=== PATIENT | female | born 1940 | race Caucasian/White ===

== ENCOUNTER 2017-01-17 08:22 | Outpatient (CLI) | payer MEDICARE, OTHER | END 2017-01-17 08:23 | disposition home or self-care (01) | DX: I77.1 Stricture of artery (principal); I10 Essential (primary) hypertension; E78.5 Hyperlipidemia, unspecified; Z72.0 Tobacco use ==

== ENCOUNTER 2017-01-28 08:18 | Outpatient (CLI) | payer MEDICARE, OTHER ==
[2017-01-28] MEDS ORDERED: IOPAMIDOL-300 100 ML VIAL IVP ONE (09:23)
== END 2017-01-28 08:19 | disposition home or self-care (01) ==
DX: I70.8 Atherosclerosis of other arteries (principal)
CPT/HCPCS: 74174; Q9967

== ENCOUNTER 2017-01-28 08:20 | Outpatient (CLI) | payer MEDICARE, OTHER | END 2017-01-28 08:21 | disposition home or self-care (01) | DX: Z12.31 Encounter for screening mammogram for malignant neoplasm of breast (principal) ==

== ENCOUNTER 2020-10-09 10:29 | Outpatient (CLI) | payer MEDICARE, OTHER ==
[2020-10-09 14:36] LABS: BASOPHILS # (AUTO) 0.1 10^3/uL (0.0-0.1); BASOPHILS % (AUTO) 0.6 %; EOSINOPHILS # (AUTO) 0.7 10^3/uL (0.0-0.7); EOSINOPHILS % (AUTO) 7.4 %; HGB - HEMOGLOBIN 14.3 g/dL (12.0-16.0); LYMPHOCYTES # (AUTO) 2.3 10^3/uL (1.5-3.5); LYMPHOCYTES % (AUTO) 24.3 %; MEAN CORPUSCULAR HEMOGLOBIN 30.5 pg (27.0-31.0); MEAN CORPUSCULAR HGB CONC 32.4 g/dL (32.0-36.0); MEAN CORPUSCULAR VOLUME 94.2 fL (81.0-99.0); MEAN PLATELET VOLUME 10.8 fL (7.9-10.8); MONOCYTES # (AUTO) 0.5 10^3/uL (0.0-1.0); MONOCYTES % (AUTO) 5.6 %; NEUTROPHILS # (AUTO) 5.8 10^3/uL (1.5-6.6); NEUTROPHILS % (AUTO) 61.7 %; PLT - PLATELET COUNT 315 10^3/uL (130-450); RED BLOOD COUNT 4.69 10^6/uL (4.20-5.40); RED CELL DISTRIBUTION WIDTH 13.5 % (12.0-15.0); WHITE BLOOD COUNT 9.3 x10^3/uL (4.8-10.8)
[2020-10-09 15:38] LABS: ALBUMIN 4.2 g/dL (3.2-5.5); ALBUMIN/GLOBULIN RATIO 1.3 (1.0-2.2); ALKALINE PHOSPHATASE 69 IU/L (42-121); ALT ALANINE AMINOTRANSFERASE 13 IU/L (10-60); AST ASPARTATE AMINOTRANSFERASE 20 IU/L (10-42); BILIRUBIN,TOTAL 0.4 mg/dL (0.2-1.0); BUN - BLOOD UREA NITROGEN 19 mg/dL (6-20); CALCIUM 9.3 mg/dL (8.5-10.3); CARBON DIOXIDE - CO2 27 mmol/L (21-32); CHLORIDE 103 mmol/L (101-111); CHOL/HDL RATIO 3.8 (<4.4); CHOLESTEROL 229 mg/dL; CREATININE 0.9 mg/dL (0.4-1.0); GLUCOSE 98 mg/dL (70-100); HDL CHOLESTEROL 60 mg/dL; LDL CHOLESTEROL,CALCULATED 149 mg/dL; LDL/HDL RATIO 2.5 (<4.4); SODIUM 140 mmol/L (135-145); TOTAL PROTEIN 7.4 g/dL (6.7-8.2); VLDL CHOLESTEROL 20 mg/dL
== END 2020-10-09 10:30 | disposition home or self-care (01) ==
LOC: LAB.S 10:29
PROVIDERS: ATTEND Internal Medicine
DX: I10 Essential (primary) hypertension (principal); Z79.899 Other long term (current) drug therapy; E78.5 Hyperlipidemia, unspecified
CPT/HCPCS: 36415; 80053; 80061; 83721; 85025

== ENCOUNTER 2020-10-29 15:34 | Outpatient (CLI) | payer MEDICARE, OTHER ==
--- NOTE | 2020-10-29 21:22 | Ultrasound Report ---
PROCEDURE: Carotid Doppler Complete INDICATIONS: DIZZINESS, NICOTINE DEPENDENCE TECHNIQUE: Color and pulse Doppler interrogation was performed of both carotid systems, with image documentation and velocity measurements. COMPARISON: None. FINDINGS: Right side: Common carotid artery peak systolic velocity: 59.0 cm/sec. Internal carotid artery peak systolic velocity: 83.9 cm/sec. Internal carotid artery end diastolic velocity: 20 3. cm/sec. External carotid artery peak systolic velocity: 101.4 cm/sec. ICA/CCA peak systolic ratio: 1.7. Holly scale imaging description: Echogenic plaques at the bifurcation. Percent internal carotid artery stenosis: Less than 50%. Vertebral artery: Flow direction is antegrade. Left side: Common carotid artery peak systolic velocity: 76.1 cm/sec. Internal carotid artery peak systolic velocity: 86 points cm/sec. Internal carotid artery end diastolic velocity: 15.6 cm/sec. External carotid artery peak systolic velocity: 80 4. cm/sec. ICA/CCA peak systolic ratio: 1.1. Holly scale imaging description: Echogenic plaques at the bifurcation Percent internal carotid artery stenosis: Less than 50% . Vertebral artery: Flow direction is antegrade. IMPRESSION: Less than 50% internal carotid artery stenosis bilaterally. The estimate of stenosis included in the report of the imaging study was calculated using the NASCET method Reviewed by: Bernardino Grubbs MD on 10/29/2020 9:20 PM PST Approved by: Bernardino Grubbs MD on 10/29/2020 9:20 PM PST Station ID: [id number]
== END 2020-10-29 15:35 | disposition home or self-care (01) ==
LOC: DI 15:34
PROVIDERS: ATTEND Internal Medicine
DX: R42 Dizziness and giddiness (principal); F17.200 Nicotine dependence, unspecified, uncomplicated
CPT/HCPCS: 93880

== ENCOUNTER 2021-05-15 09:11 | Outpatient (CLI) | payer MEDICARE, OTHER ==
[2021-05-15 14:29] LABS: BASOPHILS # (AUTO) 0.1 10^3/uL (0.0-0.1); BASOPHILS % (AUTO) 0.7 %; EOSINOPHILS # (AUTO) 0.8 10^3/uL (0.0-0.7); HCT - HEMATOCRIT 44.8 % (37.0-47.0); HGB - HEMOGLOBIN 14.6 g/dL (12.0-16.0); LYMPHOCYTES # (AUTO) 3.1 10^3/uL (1.5-3.5); LYMPHOCYTES % (AUTO) 30.3 %; MEAN CORPUSCULAR HEMOGLOBIN 30.7 pg (27.0-31.0); MEAN CORPUSCULAR HGB CONC 32.6 g/dL (32.0-36.0); MEAN CORPUSCULAR VOLUME 94.1 fL (81.0-99.0); MEAN PLATELET VOLUME 10.5 fL (7.9-10.8); MONOCYTES # (AUTO) 0.6 10^3/uL (0.0-1.0); MONOCYTES % (AUTO) 5.9 %; NEUTROPHILS # (AUTO) 5.6 10^3/uL (1.5-6.6); NEUTROPHILS % (AUTO) 54.6 %; PLT - PLATELET COUNT 308 10^3/uL (130-450); RED BLOOD COUNT 4.76 10^6/uL (4.20-5.40); WHITE BLOOD COUNT 10.2 x10^3/uL (4.8-10.8)
[2021-05-15 15:16] LABS: ALBUMIN 4.2 g/dL (3.2-5.5); ALBUMIN/GLOBULIN RATIO 1.4 (1.0-2.2); ALKALINE PHOSPHATASE 70 IU/L (42-121); ALT ALANINE AMINOTRANSFERASE 14 IU/L (10-60); AST ASPARTATE AMINOTRANSFERASE 20 IU/L (10-42); BILIRUBIN,TOTAL 0.4 mg/dL (0.2-1.0); BUN - BLOOD UREA NITROGEN 21 mg/dL (6-20); CARBON DIOXIDE - CO2 30 mmol/L (21-32); CHLORIDE 102 mmol/L (101-111); CHOLESTEROL 179 mg/dL; GFR - MDRD 53 (>89); GLUCOSE 99 mg/dL (70-100); HDL CHOLESTEROL 59 mg/dL; LDL CHOLESTEROL,CALCULATED 104 mg/dL; LDL/HDL RATIO 1.8 (<4.4); POTASSIUM 3.9 mmol/L (3.5-5.0); SODIUM 140 mmol/L (135-145); TOTAL PROTEIN 7.1 g/dL (6.7-8.2); TRIGLYCERIDES 78 mg/dL; VLDL CHOLESTEROL 16 mg/dL
== END 2021-05-15 09:12 | disposition home or self-care (01) ==
LOC: LAB.S 09:11
PROVIDERS: ATTEND Internal Medicine
DX: I10 Essential (primary) hypertension (principal); E78.5 Hyperlipidemia, unspecified
CPT/HCPCS: 36415; 80053; 80061; 83721; 85025

== ENCOUNTER 2022-01-24 08:41 | Outpatient (CLI) | payer MEDICARE, OTHER ==
[2022-01-24 15:11] LABS: BASOPHILS # (AUTO) 0.1 10^3/uL (0.0-0.1); BASOPHILS % (AUTO) 0.9 %; EOSINOPHILS # (AUTO) 0.9 10^3/uL (0.0-0.7); EOSINOPHILS % (AUTO) 9.5 %; HCT - HEMATOCRIT 45.8 % (37.0-47.0); HGB - HEMOGLOBIN 15.1 g/dL (12.0-16.0); LYMPHOCYTES # (AUTO) 2.8 10^3/uL (1.5-3.5); MEAN CORPUSCULAR HEMOGLOBIN 30.8 pg (27.0-31.0); MEAN CORPUSCULAR VOLUME 93.3 fL (81.0-99.0); MEAN PLATELET VOLUME 10.4 fL (7.9-10.8); MONOCYTES # (AUTO) 0.5 10^3/uL (0.0-1.0); MONOCYTES % (AUTO) 5.8 %; NEUTROPHILS # (AUTO) 4.7 10^3/uL (1.5-6.6); NEUTROPHILS % (AUTO) 52.5 %; PLT - PLATELET COUNT 304 10^3/uL (130-450); RED BLOOD COUNT 4.91 10^6/uL (4.20-5.40); RED CELL DISTRIBUTION WIDTH 13.7 % (12.0-15.0)
[2022-01-24 15:29] LABS: ALBUMIN 4.1 g/dL (3.2-5.5); ALBUMIN/GLOBULIN RATIO 1.4 (1.0-2.2); BILIRUBIN,TOTAL 0.7 mg/dL (0.2-1.0); CALCIUM 8.9 mg/dL (8.5-10.3)
== END 2022-01-24 08:42 | disposition home or self-care (01) ==
LOC: LAB.S 08:41
PROVIDERS: ATTEND Internal Medicine
DX: I10 Essential (primary) hypertension (principal)
CPT/HCPCS: 36415; 80053; 85025

== ENCOUNTER 2022-04-09 11:46 | Outpatient (CLI) | payer MEDICARE, OTHER ==
--- NOTE | 2022-04-09 18:15 | CT Report ---
PROCEDURE: Low Dose Lung Cancer Screen INDICATIONS: HIST OF SMOKING TECHNIQUE: Noncontrast low-dose images were acquired from the pulmonary apices to the posterior costophrenic ang les. Multiplanar MIP reformats were then acquired. For radiation dose reduction, the following was used: automated exposure control, adjustment of mA and/or kV according to patient size. COMPARISON: Chest radiograph dated 05/30/2014 FINDINGS: Image quality: Diagnostic. Lungs and pleura: There is a subsolid 5 mm right apical nodule (image 44/series 4). There are a few subcentimeter noncalcified pulmonary nodules noted in the subpleural region of the bilateral hemithor aces. These measure up to 4 mm in size. For example, lateral right upper lobe nodule seen on image 53 /series 4 as well as 3 mm lateral left upper lobe nodule seen on image 85/series 4. Additional exampl e noted in the subpleural region of the left lower lobe (image 259/series 4, 4 mm in size). There is also a ill-defined 1.4 cm groundglass nodule noted in the posterior, inferior aspect of the left uppe r lobe (image 110/series 4). No acute airspace disease. No septal thickening or nodularity. No suspic ious pulmonary mass. No pleural effusion or pneumothorax. Mediastinum: Heart size is normal. Atherosclerotic calcifications of the thoracic aorta and coronar y arteries. No pericardial effusion. No mediastinal adenopathy by size criteria. Thoracic aorta and central pulmonary arteries are normal in size. Esophagus is normal in caliber. Small hiatal hernia. Bones and chest wall: No suspicious bony lesions. No acute vertebral body compression fractures. N o axillary or supraclavicular adenopathy by size criteria. The thyroid is normal in size and there a re no incidental findings. Abdomen: Partially imaged gallbladder demonstrates suspected dense gallstones. Remaining visualized upper abdomen solid organs and bowel loops appear normal in the absence of contrast. IMPRESSION: 1. A 1.4 cm ill-defined groundglass nodule in the left upper lobe. Recommend follow-up low-dose chest CT in 12 months. 2. Multiple scattered bilateral subpleural pulmonary nodules measuring up to 4 mm in size. Recommend follow-up low-dose chest CT in 12 months to document stability. 3. A subsolid 5 mm right apical nodule. Recommend follow-up low-dose chest CT in 12 months to mer cunningham stability. 4. No acute cardiopulmonary abnormalities. 5. Moderate atherosclerotic vascular disease. 6. Suspected cholelithiasis without CT evidence for acute cholecystitis. 7. Small hiatal hernia. Lung RADS 2 (benign): Recommend follow-up low-dose chest CT in 12 months. CLINICAL RECOMMENDATION STATEMENTS: In patients <35 years with an ITN detected on CT, MRI, or extrathyroidal ultrasound, the Committee re commends further evaluation with dedicated thyroid ultrasound if the nodule is "e1 cm and has no susp icious imaging features, and if the patient has normal life expectancy. In patients "e35 years with an ITN detected on CT, MRI, or extrathyroidal ultrasound, the Committee r ecommends further evaluation with dedicated thyroid ultrasound if the nodule is "e1.5 cm and has no s uspicious imaging features, and if the patient has normal life expectancy. (ACR, 2014) Reviewed by: Mau Whitley MD on 04/09/2022 6:14 PM PDT Approved by: Mau Whitley MD on 04/09/2022 6:14 PM PDT Station ID: [id number]
== END 2022-04-09 11:47 | disposition home or self-care (01) ==
LOC: DI 11:46
PROVIDERS: ATTEND Internal Medicine
DX: Z12.2 Encounter for screening for malignant neoplasm of respiratory organs (principal); R91.8 Other nonspecific abnormal finding of lung field; K44.9 Diaphragmatic hernia without obstruction or gangrene; I70.90 Unspecified atherosclerosis; Z87.891 Personal history of nicotine dependence

== ENCOUNTER 2023-04-03 10:39 | Outpatient (CLI) | payer MEDICARE, OTHER ==
--- NOTE | 2023-04-03 20:23 | CT Report ---
PROCEDURE: CHEST WO INDICATIONS: LUNG NODULES TECHNIQUE: Noncontrast 1mm axial images were acquired from the pulmonary apices to the posterior costophrenic an gles. Axial 5 mm soft tissue kernel reconstructions were performed as well as 8 mm axial MIP and cor onal and sagittal 5 mm reformations. For radiation dose reduction, the following was used: automate d exposure control, adjustment of mA and/or kV according to patient size. COMPARISON: 04/09/2022 FINDINGS: Image quality: Excellent. Lungs and pleura: Stable subsolid 5 mm right apical nodule (55/series 4). Stable 1.4 cm groundglass n odule in the posterior left upper lobe (114/series 4). Multiple small noncalcified subcentimeter subp leural nodule are also noted. These measure approximately 4 mm in size. For example right upper lobe nodule (66/34) and subpleural left upper lobe 3 mm nodule seen on image 95/series 4. No new or enlarg ing pulmonary nodules identified. No suspicious masses. No septal thickening or nodularity. No acute airspace disease. Bibasilar atelectasis. No pleural effusions. No pneumothorax. Mediastinum: Heart size is normal. No pericardial effusions. No mediastinal adenopathy by size criter ia. No large vessel abnormality. Atherosclerotic calcifications of the thoracic aorta and coronary ar teries. Small hiatal hernia. Chest wall and lower neck: Thyroid is unremarkable. No axillary or supraclavicular adenopathy by size . Bones: No aggressive osseous abnormality. No acute compression fracture. Upper Abdomen: Redemonstration of suspected dense gallstones in the partially imaged gallbladder. Oth er visualized upper abdominal structures appear unremarkable in the absence of contrast. IMPRESSION: Stable CT of the chest with redemonstration of 1.4 cm left upper lobe groundglass nodule as well as s ome solid 5 mm right apical nodule. Additionally, multiple stable subpleural pulmonary nodules in the bilateral hemithoraces measuring up to 4mm in size. No acute cardiopulmonary abnormalities. Atherosclerotic vascular disease. Suspected cholelithiasis without CT evidence for acute cholecystitis. Small hiatal hernia. Lung RADS 2 (benign): Recommend follow-up low-dose chest CT in 12 months. Reviewed by: Mau Portillo MD on 04/03/2023 8:21 PM PDT Approved by: Mau Portillo MD on 04/03/2023 8:21 PM PDT Station ID: [id number]
== END 2023-04-03 10:40 | disposition home or self-care (01) ==
LOC: DI 10:39
PROVIDERS: ATTEND Registered Nurse
DX: R91.8 Other nonspecific abnormal finding of lung field (principal); F17.210 Nicotine dependence, cigarettes, uncomplicated; I70.0 Atherosclerosis of aorta; I25.10 Atherosclerotic heart disease of native coronary artery without angina pectoris; K44.9 Diaphragmatic hernia without obstruction or gangrene

== ENCOUNTER 2024-03-31 09:16 | Outpatient (CLI) | payer MEDICARE, OTHER ==
[2024-03-31 14:41] LABS: BASOPHILS # (AUTO) 0.1 10^3/uL (0.0-0.1); BASOPHILS % (AUTO) 0.6 %; EOSINOPHILS # (AUTO) 0.7 10^3/uL (0.0-0.7); EOSINOPHILS % (AUTO) 7.3 %; HCT - HEMATOCRIT 44.3 % (37.0-47.0); HGB - HEMOGLOBIN 14.7 g/dL (12.0-16.0); LYMPHOCYTES # (AUTO) 2.5 10^3/uL (1.5-3.5); LYMPHOCYTES % (AUTO) 26.5 %; MEAN CORPUSCULAR HEMOGLOBIN 30.9 pg (27.0-31.0); MEAN CORPUSCULAR HGB CONC 33.2 g/dL (32.0-36.0); MEAN CORPUSCULAR VOLUME 93.1 fL (81.0-99.0); MEAN PLATELET VOLUME 10.6 fL (7.9-10.8); MONOCYTES # (AUTO) 0.7 10^3/uL (0.0-1.0); MONOCYTES % (AUTO) 7.1 %; NEUTROPHILS # (AUTO) 5.6 10^3/uL (1.5-6.6); NEUTROPHILS % (AUTO) 58.2 %; PLT - PLATELET COUNT 290 10^3/uL (130-450); RED BLOOD COUNT 4.76 10^6/uL (4.20-5.40); RED CELL DISTRIBUTION WIDTH 13.6 % (12.0-15.0); WHITE BLOOD COUNT 9.6 x10^3/uL (4.8-10.8)
[2024-03-31 14:55] LABS: ALBUMIN 4.2 g/dL (3.2-5.5); ALBUMIN/GLOBULIN RATIO 1.6 (1.0-2.2); ALKALINE PHOSPHATASE 67 IU/L (42-121); ALT ALANINE AMINOTRANSFERASE 10 IU/L (10-60); AST ASPARTATE AMINOTRANSFERASE 16 IU/L (10-42); BILIRUBIN,TOTAL 0.6 mg/dL (0.2-1.0); BUN - BLOOD UREA NITROGEN 18 mg/dL (6-20); CALCIUM 9.6 mg/dL (8.5-10.3); CARBON DIOXIDE - CO2 31 mmol/L (21-32); CHLORIDE 103 mmol/L (101-111); CHOL/HDL RATIO 2.8 (<4.4); CHOLESTEROL 174 mg/dL; GFR - MDRD 53 (>89); GLUCOSE 85 mg/dL (74-104); HDL CHOLESTEROL 63 mg/dL; LDL CHOLESTEROL,CALCULATED 93 mg/dL; LDL/HDL RATIO 1.5 (<4.4); POTASSIUM 3.9 mmol/L (3.5-4.5); SODIUM 139 mmol/L (135-145); TOTAL PROTEIN 6.9 g/dL (6.4-8.9); TRIGLYCERIDES 89 mg/dL (48-352); VLDL CHOLESTEROL 18 mg/dL
[2024-03-31 15:11] LABS: THYROID STIMULATING HORMONE 1.05 uIU/mL (0.34-5.60)
== END 2024-03-31 09:17 | disposition home or self-care (01) ==
LOC: LAB.S 09:16
PROVIDERS: ATTEND Registered Nurse
DX: Z13.228 Encounter for screening for other metabolic disorders (principal); Z13.220 Encounter for screening for lipoid disorders; Z13.29 Encounter for screening for other suspected endocrine disorder; Z13.0 Encounter for screening for diseases of the blood and blood-forming organs and certain disorders involving the immune mechanism
CPT/HCPCS: 36415; 80053; 80061; 83721; 84443; 85025

== ENCOUNTER 2024-04-13 15:29 | Outpatient (CLI) | payer MEDICARE ==
--- NOTE | 2024-04-13 18:05 | CT Report ---
PROCEDURE: Lung Cancer Screen INDICATIONS: SMOKER TECHNIQUE: A CT scan of the chest was performed. Intravenous contrast media was not administered. Images were re corded and evaluated at appropriate window settings. Reformats: axial MIP of the chest, coronal and s agittal. For radiation dose reduction, the following was used: automated exposure control, adjustment of mA and/or kV according to patient size. COMPARISON: 04/03/2023, 04/09/2022 FINDINGS: Image quality: Excellent. Lungs and pleura: Vague ill-defined groundglass opacity in the posterior left upper lobe kidney measures approximately 1.4 cm on image 4/38 additional 5 mm subsolid nodule in the right lung apex on image 4/18 also remain s unchanged. Smaller subpleural nodules in right upper lobe measure less than 3 mm and are stable no new nodules. Mediastinum: Heart size is normal. No pericardial effusion. No large vessel abnormality. No mediastin al adenopathy by size criteria. Dense coronary artery vascular calcification. Dense aortic descendin g vascular calcification present as well Chest wall and lower neck: Thyroid is unremarkable. No axillary or supraclavicular adenopathy by size . Bones: No aggressive osseous abnormality. Upper Abdomen: Cholelithiasis IMPRESSION: Stable 1.4 cm left upper lobe groundglass opacity and small 5 mm nodules Lung RAD: 2 - Benign. Recommendation: Continue annual screening in 12 Months with LDCT Cholelithiasis Reviewed by: Ismael Russo MD on 04/13/2024 5:03 PM AKDT Approved by: Ismael Russo MD on 04/13/2024 5:03 PM AKDT Station ID: [id number]
== END 2024-04-13 15:30 | disposition home or self-care (01) ==
LOC: DI 15:29
PROVIDERS: ATTEND Registered Nurse
DX: Z12.2 Encounter for screening for malignant neoplasm of respiratory organs (principal); F17.210 Nicotine dependence, cigarettes, uncomplicated; R91.8 Other nonspecific abnormal finding of lung field; K80.20 Calculus of gallbladder without cholecystitis without obstruction; G31.84 Mild cognitive impairment of uncertain or unknown etiology; R42 Dizziness and giddiness; G31.89 Other specified degenerative diseases of nervous system

== ENCOUNTER 2024-04-13 15:31 | Outpatient (CLI) | payer MEDICARE ==
--- NOTE | 2024-04-13 18:07 | CT Report ---
PROCEDURE: Head WO INDICATIONS: DIZZINESS TECHNIQUE: Helical axial CT of the brain was obtained without contrast and reformatted in multiple p lanes. Radiation dose reduction was achieved using automated exposure control or adjustment of mA and /or kV according to patient size. COMPARISON: None FINDINGS: CSF spaces: Ventricles are appropriate in size and position. No hydrocephalus. Basal cisterns unre markable. Brain: No midline shift. No intracranial masses or hemorrhage. Holly-white matter interface is norm al. Moderate atrophy and multifocal white matter chronic ischemic change noted. Atherosclerotic vascular calcification noted in the cavernous segments of both internal carotid arteries. Skull and face: Calvarium and skull base are unremarkable without suspicious lesion. Sinuses: Left sphenoid mucosal thickening IMPRESSION: Atrophy and chronic ischemic change without intracranial hemorrhage or mass effect. Sphenoid mucosal sinus disease Reviewed by: Ismael Russo MD on 04/13/2024 5:06 PM AKDT Approved by: Ismael Russo MD on 04/13/2024 5:06 PM AKDT Station ID: [id number]
== END 2024-04-13 15:32 | disposition home or self-care (01) ==
LOC: DI 15:31
PROVIDERS: ATTEND Registered Nurse
DX: G31.84 Mild cognitive impairment of uncertain or unknown etiology (principal); R42 Dizziness and giddiness; G31.89 Other specified degenerative diseases of nervous system